=== PATIENT | male | born 1985 | race Caucasian/White ===

== ENCOUNTER 2019-04-07 23:12 | Emergency (ER) | payer SELFPAY ==
[~2019-04-07] VITALS: Ht 160 cm; Wt 70.5 kg
[2019-04-07 23:23] VITALS: Ht 160 cm; Wt 70.5 kg
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
[2019-04-08] MEDS ORDERED: ONDANSETRON (ODT) 4 MG TAB ODT STA (01:15)
[2019-04-08] MEDS ORDERED: HYDROCODONE/APAP (10/325) TAB PO ONE (01:30)
[2019-04-08] MEDS ORDERED: IBUP800T48 PO (04:46)
[2019-04-08] MEDS ORDERED: CYCL10TA7 PO (04:47)
[2019-04-08 05:15] VITALS: BP 134/70; PULSE 84; RESP 17
== END 2019-04-08 05:15 | disposition home or self-care (01) ==
LOC: FTE 23:12
DX: S20.219A Contusion of unspecified front wall of thorax, initial encounter (principal); S80.01XA Contusion of right knee, initial encounter; M62.838 Other muscle spasm; V43.62XA Car passenger injured in collision with other type car in traffic accident, initial encounter
CPT/HCPCS: 71046; 72040; 73562